=== PATIENT | male | born 1985 | race Caucasian/White ===

== ENCOUNTER 2018-11-29 20:45 | Emergency (ER) | payer MEDICAID ==
[~2018-11-29] VITALS: Ht 188 cm; Wt 85.7 kg
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
--- NOTE | 2018-11-29 21:14 | NUR ---
PT TO RADIOLOGY ON WHEELCHAIR
--- NOTE | 2018-11-29 21:48 | NUR ---
Patient discharged to home in stable condition. Written and verbal after care instructions given. Patient verbalizes understanding of instruction.Pt ambulatory with a steady gait
[2018-11-29 21:49] VITALS: BP 118/69
== END 2018-11-29 21:49 | disposition home or self-care (01) ==
LOC: ER 20:49
DX: S02.2XXA Fracture of nasal bones, initial encounter for closed fracture (principal); S00.12XA Contusion of left eyelid and periocular area, initial encounter; S00.11XA Contusion of right eyelid and periocular area, initial encounter; R41.3 Other amnesia; Y04.8XXA Assault by other bodily force, initial encounter; Y93.89 Activity, other specified; Y92.89 Other specified places as the place of occurrence of the external cause; Y99.8 Other external cause status
CPT/HCPCS: 70160-TC; 70450-TC

== ENCOUNTER 2018-12-02 19:15 | Emergency (ER) | payer MEDICAID, OTHER ==
[~2018-12-02] VITALS: Ht 188 cm; Wt 89.4 kg
[2018-12-02 19:35] VITALS: BP 117/63
--- NOTE | 2018-12-02 19:46 | NUR ---
AT BEDSIDE FOR EVAL.
[2018-12-02] MEDS ORDERED: TDAP [DIPH/PERTUSSIS/TET] 0.5 ML VIAL IM ONE ×2 (19:55→20:00)
--- NOTE | 2018-12-02 20:00 | NUR ---
Patient discharged to home in stable condition. Written and verbal after care instructions given. Patient verbalizes understanding of instruction.
== END 2018-12-02 20:00 | disposition home or self-care (01) ==
LOC: ER 19:20
DX: S91.331A Puncture wound without foreign body, right foot, initial encounter (principal); Z60.2 Problems related to living alone; W22.8XXA Striking against or struck by other objects, initial encounter; Y93.89 Activity, other specified; Y92.89 Other specified places as the place of occurrence of the external cause; Y99.8 Other external cause status
CPT/HCPCS: 90715

== ENCOUNTER 2019-10-16 00:15 | Emergency (ER) | payer MEDICAID, OTHER ==
[~2019-10-16] VITALS: Ht 188 cm; Wt 97.5 kg
--- NOTE | 2019-10-16 00:25 | NUR ---
called pt in waiting room x3. no one responded. will follow up
--- NOTE | 2019-10-16 00:37 | NUR ---
PT AAOX4. AMBULATORY WITH STEADY GAIT. BIBSELF C/O LOWER BACK PAIN THAT IS RADIATING TO BOTH LEGS FOR THE PAST TWO DAYS. PLACED ON MONITOR AND PULSE OX. PT SEEMS ANXIOUS. VSS.
[2019-10-16] MEDS ORDERED: LORAZEPAM INJ 2 MG/ML VIAL IM ONE (01:30)
[2019-10-16] MEDS ORDERED: KETOROLAC TROMETHAMINE INJ 60 MG/2 ML VIAL IM ONE (01:30)
--- NOTE | 2019-10-16 01:31 | NUR ---
TRAVELING SALES REPRESENTATIVE AT BEDSIDE FOR LABS
[2019-10-16] MEDS ORDERED: LORAZEPAM INJ 2 MG/ML VIAL ONE (01:32)
[2019-10-16] MEDS ORDERED: KETOROLAC TROMETHAMINE INJ 30 MG/ML VIAL ONE (01:32)
--- NOTE | 2019-10-16 01:46 | NUR ---
PT AMBULATED TO THE NURSING STATION STATED "I AM GOING OUTSIDE TO SMOKE A CIG AND YOU CAN NOT STOP ME." PT POINTED AT HIS PHONE THEN STATED "I AM SPEAKING TO MY RECRUITING SCHEDULER."
--- NOTE | 2019-10-16 01:47 | NUR ---
PT WALKED OUT OF E.D. WITHOUT DISCHARGE PAPERS. RISK AND BENEFITS EXPLAINED.
--- NOTE | 2019-10-16 01:47 | NUR ---
AWARE, PT LEFT [facility].
[2019-10-16 01:48] VITALS: BP 117/67
[2019-10-16 01:58] LABS: BASOPHILS # (AUTO) 0.2 /CMM (0.0-0.2); BASOPHILS % (AUTO) 3.1 % (0.0-2.0); CALCIUM, SERUM 8.4 mg/dL (8.5-10.1); EOSINOPHILS % (AUTO) 3.1 % (0.0-6.0); HEMATOCRIT 48 % (39-51); LYMPHOCYTES # (AUTO) 2.7 /CMM (0.8-4.8); LYMPHOCYTES % (AUTO) 41.2 % (20.0-44.0); MEAN CORPUSCULAR HGB CONC 34 g/dl (31.0-36.0); MEAN CORPUSCULAR VOLUME 92 fL (80-96); MONOCYTES # (AUTO) 0.4 /CMM (0.1-1.30); MONOCYTES % (AUTO) 6.9 % (2.0-12.0); NEUTROPHILS % (AUTO) 45.7 % (43.0-81.0); PLATELET COUNT (AUTO) 220 /CMM (150-450); POTASSIUM 3.8 mmol/L (3.5-5.1); RED BLOOD CELL COUNT(AUTO) 5.18 MIL/uL (4.5-6.0); WHITE BLOOD COUNT (AUTO) 6.5 K/uL (4.3-11.0)
== END 2019-10-16 01:49 | disposition home or self-care (01) ==
LOC: ER 00:17
DX: M54.5 Low back pain (principal); F22 Delusional disorders; Z60.2 Problems related to living alone
CPT/HCPCS: 36415; 80048; 85025; 96372 ×2; 99284; J1885; J2060

== ENCOUNTER 2020-05-02 18:45 | Emergency (ER) | payer OTHER ==
[~2020-05-02] VITALS: Ht 188 cm; Wt 102.1 kg
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
--- NOTE | 2020-05-02 19:21 | NUR ---
Patient discharged to home in stable condition. Written and verbal after care instructions given. Patient verbalizes understanding of instruction. Pt ambulatory with a steady gait
[2020-05-02 19:39] VITALS: BP 132/86
== END 2020-05-02 19:21 | disposition home or self-care (01) ==
LOC: ER 18:48
DX: S01.111A Laceration without foreign body of right eyelid and periocular area, initial encounter (principal); S51.011A Laceration without foreign body of right elbow, initial encounter; Z60.2 Problems related to living alone; V49.69XA Unspecified car occupant injured in collision with other motor vehicles in traffic accident, initial encounter; Y93.89 Activity, other specified; Y92.413 State road as the place of occurrence of the external cause; Y99.8 Other external cause status